=== PATIENT | female | born 1995 | race Caucasian/White ===

== ENCOUNTER 2025-05-07 13:50 | Outpatient (CLI) | payer MEDICAID, SELFPAY ==
[2025-05-07] VITALS (11 sets, daily range): BP systolic 108–136; BP diastolic 54–76; PULSE 86–115; RESP 16; TEMP 37; O2SAT 97–98
[2025-05-07 15:47] LABS: Hematocrit 32.5 % (37-47); Hemoglobin 10.5 g/dL (12.0-15.0); Mean Corp Hgb Conc 32.3 g/dL (32-36); Mean Corpuscular Volume 83.3 fL (81-99); Mean Platelet Vol. 12.3 fl (6.2-12.0); Platelet Count 263 K/mm3 (150-450); RBC Distribution Width CV 13.5 % (11.6-14.6); RBC Distribution Width SD 40.8 fl (35.1-43.9); Red Blood Count 3.90 M/mm3 (4.2-5.4); White Blood Count 10.0 K/mm3 (4.4-11.0)
[2025-05-07 16:18] LABS: Creatinine, Urine (random) 76.50 mg/dL (28.00-217.00); Protein, Urine (Random) 7.4 mg/dL (0.0-12.0); Protein:Creat Ratio 97 mg/g CRE (0-200)
[2025-05-07 16:29] LABS: AST(SGOT) 17 U/L (<=31); Alanine Aminotransfer ALT/SGPT 10 U/L (<=34); Uric Acid 3.8 mg/dL (2.6-6.0)
--- NOTE | 2025-05-07 18:17 | OB.TRI.NOTE ---
HPI - General HPI Narrative SAYRA KENDRICK, is a 29 F who presents with multiple concerns such as headache for 4 days, Swelling, dizzy spells, forgetfulness, nausea, and elevated blood pressures at home. She receives care in [place], [place]. Maternal Data Information MARIANO Calculator Estimated Delivery Date Method Current WG Current Estimate 06/08/25 Manual 35w 3d PFSH PFSH Home Medications ?Medication ?Instructions ?Recorded ?Last Taken ?Type acetaminophen 500 mg tablet 1,000 mg PO Q6H PRN pain 05/07/25 Unknown History ondansetron HCl 4 mg tablet 4 mg PO Q6H PRN nausea and vomiting 05/07/25 Unknown History Allergy/AdvReac Type Severity Reaction Status Date / Time ketorolac (From Toradol) Allergy Severe Swelling Verified 05/07/25 16:05 morphine Allergy Severe Anaphylaxis Verified 05/07/25 16:05 Penicillins Allergy Severe Hives Verified 05/07/25 16:05 tramadol Allergy Severe Anaphylaxis Verified 05/07/25 16:05 ROS ENT HEENT: Reports dizziness and headache(s) Cardiovascular Cardiovascular: Reports none; Denies chest pain at rest or chest pain with activity Respiratory/Chest Respiratory/Chest: Denies cough or dyspnea Gastrointestinal Gastrointestinal: Reports none and other; Denies diarrhea or vomiting Genitourinary Genitourinary: Denies dysuria Musculoskeletal Musculoskeletal: Reports none Integumentary Integumentary: Reports none; Denies rash Neurologic Neurologic: Denies other visual disturbances Psychiatric Psychiatric: Reports none Physical Exam Const alert and no apparent distress General Appearance: cooperative Orientation / Consciousness: awake Exam Limitations: no limitations HEENT normocephalic Eyes General Eye: normal appearance of both eyes Neck full ROM Chest inspection of chest normal Resp normal respiratory effort and normal air movement Effort and Inspection: symmetric chest movement Auscultation: clear to auscultation bilaterally Cardio regular rate GI soft to palpation, non-tender and non-distended Inspection: and other Back/Spine normal ROM Extremity full ROM, normal capillary refill and no calf tenderness Skin no rashes or lesions noted Neuro oriented x3 and CN's II-XII intact bilaterally Psych mental status grossly normal NST FHR Rate Baby A Baseline: 145 Variability:: Moderate Accelerations:: 15 x 15 Decelerations:: None NST Reactive:: Yes Uterine Activity:: none Assessment & Plan (1) Headache: (2) Dizziness: (3) Elevated blood pressure reading: (4) Forgetfulness: (5) 35 weeks gestation of : PLAN: Plan No elevated pressures while in triage- range 109-136/54-76 PIH labs within normal ranges NST reactive No contractions D/C home with follow up in regular OB office this week Reviewed preeclampsia precautions Dr. Arriaga on unit and involved with plan of care
== END 2025-05-07 16:47 | disposition home or self-care (01) ==
LOC: WPOUT 14:05 → WP 14:06
PROVIDERS: Obstetrics & Gynecology; Referring Provider Advanced Practice Midwife; Visit Provider Advanced Practice Midwife
DX: O99.891 Other specified diseases and conditions complicating pregnancy (principal); R51.9 Headache, unspecified; R42 Dizziness and giddiness; R03.0 Elevated blood-pressure reading, without diagnosis of hypertension; R41.9 Unspecified symptoms and signs involving cognitive functions and awareness; Z3A.35 35 weeks gestation of pregnancy
CPT/HCPCS: 36415; 59025; 59050; 82565; 82570; 84156; 84450; 84460; 84550; 85027; 99221; G0378